=== PATIENT | male | born 1985 | race African-American/Black ===

== ENCOUNTER 2016-09-24 08:56 | Emergency (ER) ==
[2016-09-24 09:41] LABS: MANUAL DIFF NEEDED? NO
[2016-09-24 09:43] LABS: BASO% 0.2 % (0.0-0.8); EOS# 0.17 X1000 (0.0-0.7); HEMATOCRIT 36.6 % (42.0-52.0); HEMOGLOBIN 12.2 g/dL (14.0-18.0); IMM GRAN# 0.01 X1000 (0.0-0.04); IMM GRAN% 0.2 % (0.0-0.5); LYMPH# 1.91 X1000 (1.2-3.4); LYMPH% 44.4 % (20.5-51.1); MCH 28.1 PG (27-31); MCHC 33.3 g/dL (33-37); MCV 84.3 FL (81-99); MONO% 11.6 % (1.7-9.3); MPV 9.1 FL (7.4-10.4); NEUT% 39.6 % (42.2-75.2); PLT 314 X1000 (130-400); RBC 4.34 XMIL (4.7-6.1)
--- NOTE | 2016-09-24 09:47 | PROVIDER DOCUMENTATION ---
HPI-Chest Pain - General Source: patient - History of Present Illness-CP Location: reports: other (L side) Chest Pain Radiation: reports: no radiation Quality of Pain: reports: pressure Severity in ED: mild Onset/Duration: this morning Timing: still present, constant Context/Activities at Onset: reports: light activity Modifying Factors: improves with: nothing Associated Symptoms: reports: denies symptoms Nitro Today/Relief: no nitro taken today Aspirin Treatment Today: no aspirin today Similar Symptoms Previously?: Yes Recently Seen Here or By Another Healthcare Provider: No <Elaina Gresham - Last Filed: 09/24/16 10:03> <Sami Marie - Last Filed: 09/24/16 11:20> - General Chief Complaint: Chest Pain Stated Complaint: "Pain around pacemaker" Time Seen by Provider: 09/24/16 09:19 Allergies/Adverse Reactions: Patient Allergies Allergy/AdvReac Type Severity Reaction Status Date / Time acetaminophen [From Percocet] Allergy ITCHING Verified 09/24/16 09:00 oxycodone HCl * Allergy ITCHING Verified 09/24/16 09:00 [From Percocet] Home Medications: Home Medication List Medication Instructions Recorded Confirmed Last Taken Type Aspirin 81 mg PO DAILY 07/21/13 09/24/16 09/10/16 History Omeprazole [Prilosec] 20 mg PO DAILY 08/28/16 09/24/16 09/10/16 History Metoprolol [Lopressor] 100 mg PO BID 09/24/16 09/24/16 Unknown History Tramadol [Ultram] 50 mg PO Q6H PRN PRN #12 tablet 09/24/16 Unknown Rx - History of Present Illness-CP Nature of Presenting Problem: Pt is 31 y/o M presents to the ED with CP. Pt states CP is on the L side of chest. Pt states having a d fib pacemaker placed in 2015. Pt denies being shock. Pt denies any other symptoms. Pt states CP started this am around 0400 ( Elaina Gresham) Review of Systems - Adult - REVIEW OF SYSTEMS - ADULT Constitutional: denies: chills, fever Eyes: denies: blurred vision, double vision Ears, Nose, Mouth & Throat: denies: ear pain, nose pain, throat pain Cardiovascular: reports: chest pain (L side). denies: heart murmur, irregular heart rate Respiratory: denies: cough, shortness of breath, wheezing Gastrointestinal: denies: abdominal pain, diarrhea, nausea, vomiting Genitourinary: denies: dysuria, hematuria Musculoskeletal: denies: bone pain, joint pain, joint swelling, neck pain Integumentary: denies: hives, itching Neurological: denies: dizziness/vertigo, headache/migraines Psychiatric: reports: no symptoms reported Endocrine: reports: no symptoms reported Hematologic/Lymphatic: reports: no symptoms reported Allergic/Immunologic: reports: no symptoms reported All Other Systems: Reviewed and Negative <Elaina Gresham - Last Filed: 09/24/16 10:03> Past History - Adult - PAST MEDICAL HISTORY-ADULT Review of Records: reports: Nursing Assessment Review, Medications Reviewed, Social history reviewed & non-contributory. Major Childhood Illnesses: reports: denies history Cardiovascular: reports: HTN, other (hypertrophic cardimyopathy, defibrillator) Respiratory: reports: denies history Gastrointestinal: reports: GERD Obstetrical/Gynecological: reports: denies history Genitourinary: reports: denies history Musculoskeletal: reports: denies history Neurological: reports: denies history Endocrine/Immune: reports: denies history Other Conditions: reports: denies history - PRIOR SURGERIES/PROCEDURES Surgical/Procedure History: reports: pacemaker - PRIOR HOSPITALIZATIONS Prior Hospitalizations: reports: for similar symptoms - IMMUNIZATION STATUS Childhood Immunizations: See Nurse Assessment Flu Vaccine: See Nurse Assessment - FAMILY HISTORY Family History: HTN - SOCIAL HISTORY Smoking: quit greater than 1 year, cigarettes Substance Use: alcohol Alcohol Use Frequency: occasionally Number of drinks per typical drinking period:: 2 drinks Living Situation: family <Elaina Gresham - Last Filed: 09/24/16 10:03> Physical Exam-General - PHYSICAL EXAM-ADULT Initial Vital Signs Reviewed: Yes - CONSTITUTIONAL General Appearance: appears well, alert, no apparent distress - EYES Eyes: PERRL/EOMI, pink conjunctivae, fundi clear, no AV nicking - HEAD, EARS, NOSE, MOUTH & THROAT HENMT: normocephalic/atraumatic, moist mucous membranes, normal ENT inspection, TMs normal, pharynx normal - NECK Neck: non-tender, full range of motion, supple, normal inspection - RESPIRATORY Respiratory: chest non-tender, lungs clear, normal breath sounds, no pleuratic chest pain, no respiratory distress - CARDIOVASCULAR Cardiovascular: normal peripheral pulses, regular rate, rhythm, no edema, no gallop, no JVD, no murmur - CHEST (BREASTS) Chest/Breast: other (pacemaker in place L side chest) - LYMPHATIC Lymphatic: no adenopathy - MUSCULOSKELETAL Back Exam: normal inspection, no CVA tenderness, no vertebral tenderness Extremity: normal range of motion, non-tender, normal inspection, no pedal edema , no calf tenderness, normal capillary refill - SKIN Integumentary: normal color, normal turgor, warm/dry - NEUROLOGIC Neurologic: grossly normal - PSYCHIATRIC Psych/Mental Status: normal mood/affect, oriented x 3 <Elaina Gresham - Last Filed: 09/24/16 10:03> Progress - EKG 1 Time of EKG reading by physician:: 08:56 EKG Read and Signed by:: Sami Marie EKG Interpretation (*Must complete 3 of following elements*): Abnormal Rate: 62 Rhythm: normal sinus rhythm Comments: left ventricular hypertrophy with repolarization abnormality. - XRAY 1 XRAY: Bilateral XRAY Study: Chest Impression: Normal XRAY Interpretation: nad <Elaina Gresham - Last Filed: 09/24/16 10:03> <Sami Marie - Last Filed: 09/24/16 11:20> - PLAN OF CARE/RESULTS Progress/Plan/Lab Results: Laboratory Tests 09/24/16 09:40 WBC 4.30 L RBC 4.34 L Hgb 12.2 L Hct 36.6 L MCV 84.3 MCH 28.1 MCHC 33.3 RDW Std Deviation 12.9 Plt Count 314 MPV 9.1 Immature Gran % (Auto) 0.2 Neut % (Auto) 39.6 L Lymph % (Auto) 44.4 [place] % (Auto) 11.6 H Eos % (Auto) 4.0 Baso % (Auto) 0.2 Immature Gran # (Auto) 0.01 Neut # (Auto) 1.70 Lymph # (Auto) 1.91 [place] # (Auto) 0.50 Eos # (Auto) 0.17 Baso # (Auto) 0.01 Orders Category Date Time Status cxr [CHEST-2 VIEWS] [RAD] Stat Exams 09/24/16 09:20 Ordered CBC WITH ELECTRONIC DIFF [HEME] Stat Lab 09/24/16 09:40 Results SED RATE [HEME] Stat Lab 09/24/16 09:40 Results Vital Signs - 24 hr 09/24/16 08:57 Pulse Rate 67 Respiratory 18 Rate Blood Pressure 140/77 O2 Sat by Pulse 97 Oximetry (Elaina Gresham) he has sl tenderness around debrillator. No erythema, no fluctuance. denies trauma to area, denies unusual activity. Seems to be some irritation of defibrillator pouch (Sami Marie) Departure <Elaina Gresham - Last Filed: 09/24/16 10:03> - Departure Time of Disposition Order: 11:04 Certified Medical Emergency: Emergent <Sami Marie - Last Filed: 09/24/16 11:20> - Departure DIAGNOSIS: Problem related to implantable cardioverter-defibrillator (ICD) Disposition: HOME 01 Condition: Good Additional Instructions: ED Follow Up Instructions: You have been treated by a care provider in the Emergency Department. These instructions are being provided to you so you can have an understanding of how to care for yourself upon discharge. Upon discharge from the Emergency Department, you are responsible for making arrangements for follow-up care by a physician of your choice. Take all prescribed medications as directed. Return to the Emergency Department immediately for any new or worsening symptoms. You may call the Physician Referral phone number at [phone] to obtain a list of Physicians who are taking new patients. Follow up with Dr Jacobsen Prescriptions: Tramadol [Ultram] 50 mg PO Q6H PRN PRN #12 tablet PRN Reason: Pain Referrals: Jesús Jha MD [Primary Care Provider] - Attestation - Scribe Verification/Attestation Scribe:: Elaina Gresham Acting as Scribe for:: Sami Marie Scribe documention review:: This chart was documented by a scribe and accurately reflects the service the provider performed and the decisions made by the provider. <Elaina Gresham - Last Filed: 09/24/16 10:03> Physician Attestation - Physician Attestation I, the provider, attest to the following statement:: Sami Marie Physician documentation Attestation:: This documentation recorded by the scribe accurately reflects the service I personally performed and the decisions made by me. <Sami Marie - Last Filed: 09/24/16 11:20>
--- NOTE | 2016-09-24 10:26 | Diag Imaging Result Document ---
PROCEDURE NAME: CHEST-2 VIEWS - 09/24/2016 TWO VIEWS OF THE CHEST: FINDINGS: There is no evidence of acute cardiac or pulmonary disease. Compared to 08/29/2016, there has been no significant change in the appearance of the chest. IMPRESSION: No evidence of acute disease.
[2016-09-24] MEDS ORDERED: NORCO-5 PO ONE (10:44)
[2016-09-24 10:52] LABS: SED RATE 12 mm/hr (0-15)
[2016-09-24 11:37] VITALS: BP 133/72
--- NOTE | 2016-09-24 14:01 | EKG Report ---
Test Performed on : 09/24/2016 08:56:27 AM Test Reason : Blood Pressure : / mmHG Vent. Rate : 062 BPM Atrial Rate : 062 BPM P-R Int : 138 ms QRS Dur : 106 ms QT Int : 436 ms P-R-T Axes : 018 030 215 degrees QTc Int : 442 ms Normal sinus rhythm. Left ventricular hypertrophy with repolarization abnormality Abnormal ECG When compared with ECG of 29-AUG-2016 01:27, No significant change was found Unconfirmed Result
== END 2016-09-24 11:35 | disposition home or self-care (01) ==
LOC: P.ED 08:56
DX: T82.847A Pain due to cardiac prosthetic devices, implants and grafts, initial encounter (principal); R07.9 Chest pain, unspecified; Z95.810 Presence of automatic (implantable) cardiac defibrillator; I10 Essential (primary) hypertension; I42.2 Other hypertrophic cardiomyopathy; K21.9 Gastro-esophageal reflux disease without esophagitis; R94.31 Abnormal electrocardiogram [ECG] [EKG]; Z87.891 Personal history of nicotine dependence; Z79.899 Other long term (current) drug therapy; Z79.82 Long term (current) use of aspirin; Z82.49 Family history of ischemic heart disease and other diseases of the circulatory system
CPT/HCPCS: 36415; 71020; 85025; 85651; 93005; 99284